=== PATIENT | male | born 1970 | race Caucasian/White ===

== ENCOUNTER → 2020-10-29 | Outpatient (CLI) | payer OTHER ==
--- NOTE | 2020-10-29 12:22 | US ---
EXAMINATION TYPE: US duplex aorta DATE OF EXAM: 10/29/2020 COMPARISON: NONE CLINICAL HISTORY: Z13.6 screening for AAA. family history, mother had thoracic AAA EXAM MEASUREMENTS: Abdominal Aorta: Proximal: 2.4 x 2.4cm Mid: 1.8 x 2.4cm Distal: 1.5 x 1.8cm Bifurcation: Rt = 0.9cm Lt = 0.9cm Grayscale, color Doppler, spectral Doppler imaging performed of the abdominal aorta. There is color f low, vascular waveforms identified, patency IMPRESSION: No evident abdominal aortic aneurysm
== END | disposition home or self-care (01) ==
LOC: RADUSWWP 07:38
PROVIDERS: ATTEND Family Medicine
DX: Z13.6 Encounter for screening for cardiovascular disorders (principal)
CPT/HCPCS: 93979

== ENCOUNTER 2020-11-25 08:28 | Day surgery (SDC) | payer OTHER ==
[2020-11-21 13:07] VITALS: BMI 24.8
[~2020-11-25 08:28] MED LIST: LACTATED RINGERS 1,000 ML IV SCH
[2020-11-25 09:01] VITALS: RESP 18; TEMP 97.6
[2020-11-25] MEDS ORDERED: PROPOFOL 10 MG/ML 20 ML VIAL IV ONE (09:38)
--- NOTE | 2020-11-25 10:11 | P.PCN ---
Date of Procedure: 11/25/20 Description of Procedure: BRIEF HISTORY: Patient is a 50-year-old male presenting for outpatient colonoscopy for screening for malignant neoplasm of the colon. No prior colonoscopy. No family history of colon cancer. No change in bowel habits or abdominal pain reported. PROCEDURE PERFORMED: Colonoscopy with polypectomy. PREOPERATIVE DIAGNOSIS: Screening for malignant neoplasm of the colon, no prior colonoscopy. ESTIMATED BLOOD LOSS: Minimal. IV sedation per Anesthesia. PROCEDURE: After informed consent was obtained, the patient, was brought into the endoscopy unit. IV sedation was administered by Anesthesia under continuous monitoring. Digital rectal examination was normal. Initially the Olympus CF-190 flexible video colonoscope was then inserted in the rectum, gradually advanced into the cecum without any difficulty. Careful examination was performed as the scope was gradually being withdrawn. Ileocecal valve and the appendiceal orifice were visualized and appeared normal. Prep was excellent. Mucosa of the cecum, ascending colon, transverse colon, descending colon, sigmoid colon, and rectum appeared normal. Flat 4 mm rectal polyp removed with cold snare polypectomy. 2 diminutive polyps measuring 1 mm in the ascending colon and 2 mm in the sigmoid colon removed with cold forcep polypectomy. Retroflexion was performed in the rectum and no lesions were seen, Low-grade internal hemorrhoids. The patient tolerated the procedure well. IMPRESSION: Small rectal polyp removed with cold snare polypectomy. 2 diminutive polyps removed from ascending colon and sigmoid colon with cold forcep polypectomy. RECOMMENDATIONS: Findings of this examination were discussed with the patient.. Okay to resume diet. Okay to resume medication. Await pathology from polypectomies. Recommend repeat colonoscopy in 5 years, pending pathology from polypectomies.
[2020-11-25 10:30] VITALS: BP 125/87; PULSE 71
== END 2020-11-25 10:48 | disposition home or self-care (01) ==
LOC: ORWHC2ENDO 08:28
PROVIDERS: ATTEND Internal Medicine
DX: Z12.11 Encounter for screening for malignant neoplasm of colon (principal); D12.2 Benign neoplasm of ascending colon; K63.5 Polyp of colon; K62.1 Rectal polyp; K64.8 Other hemorrhoids; F17.210 Nicotine dependence, cigarettes, uncomplicated
CPT/HCPCS: 88305; 45380; 45385; J2704